=== PATIENT | male | born 2000 | race Two or more races ===

== ENCOUNTER 2022-01-14 10:40 | Emergency (ER) | payer OTHER ==
[~2022-01-14] VITALS: Ht 175.3 cm; Wt 86.3 kg
--- NOTE | 2022-01-14 11:21 | PHYS DOC ---
Past Medical History Past Medical History: No Pertinent History Past Surgical History: Other Additional Past Surgical Histo: RIGHT WRIST Smoking Status: Never Smoker Alcohol Use: None Drug Use: None General Adult EDM: Chief Complaint: ANKLE PROBLEM HPI: HPI: Patient is a 21-year-old male that presents today with right ankle pain. Patient states yesterday while at work he stepped down from his truck and twisted his ankle, he states that it has caused him pain and is unable to bear weight on it at this time. Patient has not taken any pain medication such as Tylenol or ibuprofen for the pain. Review of Systems: Review of Systems: Constitutional: Denies fever or chills. [] Eyes: Denies change in visual acuity. [] HENT: Denies nasal congestion or sore throat. [] Respiratory: Denies cough or shortness of breath. [] Cardiovascular: Denies chest pain or edema. [] GI: Denies abdominal pain, nausea, vomiting, bloody stools or diarrhea. [] : Denies dysuria. [] Musculoskeletal: Right ankle pain Integument: Denies rash. [] Neurologic: Denies headache, focal weakness or sensory changes. [] Endocrine: Denies polyuria or polydipsia. [] Lymphatic: Denies swollen glands. [] Psychiatric: Denies depression or anxiety. [] Heart Score: C/O Chest Pain: No Risk Factors: Risk Factors: DM, Current or recent (<one month) smoker, HTN, HLP, family history of CAD, obesity. Risk Scores: Score 0 - 3: 2.5% MACE over next 6 weeks - Discharge Home Score 4 - 6: 20.3% MACE over next 6 weeks - Admit for Clinical Observation Score 7 - 10: 72.7% MACE over next 6 weeks - Early Invasive Strategies Physical Exam: PE: Constitutional: Well developed, well nourished, no acute distress, non-toxic appearance. [] HENT: Normocephalic, atraumatic, bilateral external ears normal, oropharynx moist, no oral exudates, nose normal. [] Eyes: PERRLA, EOMI, conjunctiva normal, no discharge. [] Neck: Normal range of motion, no tenderness, supple, no stridor. [] Cardiovascular:Heart rate regular rhythm, no murmur [] Lungs & Thorax: Bilateral breath sounds clear to auscultation [] Abdomen: Bowel sounds normal, soft, no tenderness, no masses, no pulsatile masses. [] Skin: Warm, dry, no erythema, no rash. [] Back: No tenderness, no CVA tenderness. [] Extremities: Right ankle is swollen on the medial aspect, patient has pain with light palpation, there is ecchymosis noted on the lateral aspect of the ankle, dorsalis pedis and posterior tibial pulses are 2+, sensory is intact distal to the injury, patient has limited range of motion Neurologic: Alert and oriented X 3, normal motor function, normal sensory function, no focal deficits noted. [] Psychologic: Affect normal, judgement normal, mood normal. [] Current Patient Data: Vital Signs: Vital Signs Date Time Temp Pulse Resp B/P (MAP) Pulse Ox O2 Delivery O2 Flow Rate FiO2 01/14/22 10:54 98.3 87 18 140/94 (109) 98 Room Air 98.3 EKG: EKG: [] Radiology/Procedures: Radiology/Procedures: REASON: ANKLE PAIN AFTER TWISTING PROCEDURE: ANKLE RIGHT 3V XR EXAM OF ANKLE_RIGHT 3VIEWS Clinical indications: Reason: ANKLE PAIN AFTER TWISTING / Spl. Instructions: / History: Findings: Lateral soft tissue swelling is seen. No acute fracture or dislocation or osteolytic process is evident. The mortise ankle joint is intact. IMPRESSION: No acute osseous abnormality is evident. Electronically signed by: Antonio Gentile MD (01/14/2022 11:47 AM) [id number] [] Course & Med Decision Making: Course & Med Decision Making Pertinent Labs and Imaging studies reviewed. (See chart for details) 1205 reviewed radiological results with patient did inform him there was no acute processes noted on the x-ray, patient will be diagnosed with an ankle sprain he will be given an Helder wrap and a Aircast for his right ankle, crutches will be provided education by the nursing staff will be given to patient regarding use of crutches. Patient is to do weightbearing as tolerated, hydrocodone and Motrin as needed for pain, patient is to follow-up with his primary care, Workmen's [employer]., or Dr. Cordero orthopedic doctor textile converter in 5 to 7 days if his pain is not improved. Patient verbalized understanding this agreeable to the plan of care. 1225 reassessment of patient's right ankle following Aircast and Helder wrap placement shows neurovascular is intact distal to the injury. Dragon Disclaimer: [facility] Disclaimer: This electronic medical record was generated, in whole or in part, using a voice recognition dictation system. Departure Departure Impression: Primary Impression: Ankle sprain Qualified Codes: S93.401A - Sprain of unspecified ligament of right ankle, initial encounter Disposition: HOME / SELF CARE / HOMELESS Condition: STABLE Referrals: SHER CORDERO Jr. DO Patient Instructions: Ankle Sprain, Crutch Use Additional Instructions: Ice and elevate 20 minutes on 3-4 times daily Weight-bear as tolerated use crutches as needed [id number]-pnyzqeq Motrin as labeled directed for pain Hydrocodone 1 tablet every 6 hours as needed for severe pain, use with caution may cause drowsiness and constipation Follow-up with your primary care physician or Dr. Cordero who is the orthopedic doctor textile converter for further management of your ankle pain if you are still having issues in 5 to 7 days. Scripts Hydrocodone Bit/Acetaminophen (HYDROCODONE-APAP 5-325 ) 1 Tab Tablet 1 TAB PO PRN Q6HRS PRN for PAIN, #10 TAB 0 Refills Prov: TAYA HENSLEY DIRECTOR INFORMATICS 01/14/22 TAYA HENSLEY DIRECTOR INFORMATICS Jan 14, 2022 11:21
--- NOTE | 2022-01-14 11:50 | RAD ---
XR EXAM OF ANKLE_RIGHT 3VIEWS Clinical indications: Reason: ANKLE PAIN AFTER TWISTING / Spl. Instructions: / History: Findings: Lateral soft tissue swelling is seen. No acute fracture or dislocation or osteolytic proces s is evident. The mortise ankle joint is intact. IMPRESSION: No acute osseous abnormality is evident. Electronically signed by: Antonio Gentile MD (01/14/2022 11:47 AM) [id number]
[2022-01-14] MEDS ORDERED: HYDR-2761 PO (12:22)
[2022-01-14 12:30] VITALS: BP 151/86
== END 2022-01-14 12:46 | disposition home or self-care (01) ==
LOC: ER 10:40
DX: S93.401A Sprain of unspecified ligament of right ankle, initial encounter (principal); X50.9XXA Other and unspecified overexertion or strenuous movements or postures, initial encounter; Y93.89 Activity, other specified; Y92.89 Other specified places as the place of occurrence of the external cause; Y99.8 Other external cause status
CPT/HCPCS: 29515; 73610; 99283